=== PATIENT | male | born 1990 | race Caucasian/White ===

== ENCOUNTER 2017-03-22 12:12 | Emergency (ER) | payer SELFPAY ==
[2017-03-22 12:14] VITALS: BP 141/80; PULSE 58; RESP 20; TEMP 97.6; O2SAT 100
[2017-03-22] MEDS ORDERED: ACETAMINOPHEN 325 MG TAB PO ONE (13:15)
--- NOTE | 2017-03-22 13:23 | RADRPT ---
EXAM DATE/TIME: 03/22/2017 13:14 [place] COMPARISON: No previous studies available for comparison. INDICATIONS : Foreign body, stung by a wasp, left medial wrist pain. MEDICAL HISTORY : None. SURGICAL HISTORY : None. ENCOUNTER: Initial ACUITY: 1 day PAIN SCORE: 4/10 LOCATION: Left medial wrist FINDINGS: Two view examination of the left wrist demonstrates no soft tissue swelling, dislocation, or fracture . The joint spaces are maintained. Bony mineralization is normal. CONCLUSION: Unremarkable limited examination of the left wrist. Hansel Iglesias MD on March 22, 2017 at 13:21 Board Certified Radiologist. This report was verified electronically.
[2017-03-22 13:58] VITALS: BP 123/66; PULSE 65; RESP 16; O2SAT 100
[2017-03-22] MEDS ORDERED: TYLE325T PO (14:03)
--- NOTE | 2017-03-22 14:03 | PD ---
HPI Chief Complaint: Bite or Sting Time Seen by Provider: 12:44 Travel History International Travel<30 days: No Contact w/Intl Traveler<30days: No Traveled to known affect area: No History of Present Illness HPI 27yo M presents to the ED for evaluation of left wrist pain after a wasp bite/ sting. Pt states that last time he had hives and itching so he just want to come in to make sure everything was ok. Pt denies any hives, itching, throat swelling, lip swelling, sob, chest pain, n/v, abdominal pain, fever, focal weakness or numbness. Pt has no medical history. Did not take anything for pain. PFSH Past Medical History Medical History: Denies Significant Hx Tetanus Vaccination: < 5 Years Influenza Vaccination: No Past Surgical History Surgical History: No Previous Surgery Social History Alcohol Use: Yes (~3 X WEEKLY) Tobacco Use: Yes (~1/2 PPD) Substance Use: No Allergies-Medications (Allergen,Severity, Reaction): Coded Allergies: bee venom protein (honey bee) (Verified Allergy, Severe, Hives, 03/22/17) Reported Meds & Prescriptions Reported Meds & Active Scripts Active No Active Prescriptions or Reported Medications Review of Systems Except as stated in HPI: all other systems reviewed are Neg Physical Exam Narrative GENERAL: 27yo M not in distress. SKIN: Focused skin assessment warm/dry. HEAD: Atraumatic. Normocephalic. EYES: Pupils equal and round. No scleral icterus. No injection or drainage. ENT: No nasal bleeding or discharge. Mucous membranes pink and moist. Uvula midline. No edema. No tongue or lip swelling. NECK: Trachea midline. No JVD. CARDIOVASCULAR: Regular rate and rhythm. No murmur appreciated. RESPIRATORY: No accessory muscle use. Clear to auscultation. Breath sounds equal bilaterally. GASTROINTESTINAL: Abdomen soft, non-tender, nondistended. MUSCULOSKELETAL: LUE: +TTP and erythema in medial aspect of left wrist. Radial pulse 2+. FROM left wrist and digits. Do not see open wound or foreign body. NEUROLOGICAL: Awake and alert. No obvious cranial nerve deficits. Motor grossly within normal limits. Normal speech. PSYCHIATRIC: Appropriate mood and affect; insight and judgment normal. Data Data Last Documented VS Vital Signs Date Time Temp Pulse Resp B/P (MAP) Pulse Ox O2 Delivery O2 Flow Rate FiO2 03/22/17 12:47 100 Room Air 03/22/17 12:14 97.6 58 20 141/80 (100) Orders Orders Electrocardiogram (03/22/17 ) Wrist, Limited (Ap&Lat) (03/22/17 ) Acetaminophen (Tylenol) (03/22/17 13:15) MDM Medical Decision Making Medical Screen Exam Complete: Yes Emergency Medical Condition: Yes Interpretation(s) EKG: Sinus bradycardia at 54bpm. ST elevation diffusely that looks like early repolarization. No reciprocal changes. LVH. Differential Diagnosis Wasp sting vs. bite vs. foreign body in wrist Narrative Course 27yo M with left wrist pain s/p wasp bite/sting. Pt has no allergic symptoms this time. EKG was ordered by nurse because it looks like ST elevation on the monitor. Pt has no chest pain or sob. No family history of sudden cardiac . ST segment elevation looks like early repolarization without reciprocal changes. Pt given acetaminophen which relieved pain. Do not see any open wounds. Xray left wrist unremarkable. Return precautions given. Diagnosis Primary Impression: Wasp sting Qualified Codes: T63.461A - Toxic effect of venom of wasps, accidental ( unintentional), initial encounter Patient Instructions: General Instructions Departure Forms: Tests/Procedures Additional Instructions: Please follow up with your primary care physician in 3-7 days. Return to the ED if symptoms worsen. Med/Other Pt SpecificInfo: Prescription(s) given Scripts Acetaminophen (Tylenol) 325 Mg Tab 650 MG PO Q6H Y for PAIN SCALE 1 TO 3, #20 TAB 0 Refills Prov: Sofi Silver DO 03/22/17 Disposition: 01 DISCHARGE HOME Condition: Stable Sofi Silver DO Mar 22, 2017 14:03
--- NOTE | 2017-03-23 14:49 | EKG ---
Date Performed: 03/22/2017 Time Performed: 12:46:57 PTAGE: 27 years EKG: SINUS BRADYCARDIA EARLY REPOLARIZATION NONSPECIFIC T-WAVE ABNORMALITY BORDERLINE ECG NO PREVIOUS TRACING Pericarditis possible. Clinical correlation recommended. DOCTOR: Ryan Alvares Interpretating Date/Time 03/23/2017 14:48:12
== END 2017-03-22 14:14 | disposition home or self-care (01) ==
LOC: PHED 12:12
DX: T63.461A Toxic effect of venom of wasps, accidental (unintentional), initial encounter (principal); W57.XXXA Bitten or stung by nonvenomous insect and other nonvenomous arthropods, initial encounter
CPT/HCPCS: 73100; 93005; 99284